=== PATIENT | female | born 1955 | race Two or more races ===

== ENCOUNTER 2019-09-08 23:13 | Emergency (ER) | payer MEDICAID ==
[~2019-09-08] VITALS: Ht 157.5 cm; Wt 59.0 kg
--- NOTE | 2019-09-08 23:37 | NUR ---
PT PRESENTED TO THE ER WITH A C/O SORE THROAT X 3 DAYS. PT STATED THAT SHE HAS BEEN TAKING TYLENOL 650 MG 3 TIMES A DAY WITH NO RELIEF. THE BACK OF THE PT'S MOUTH IS RED. TONSILS APPEAR INFLAMED AND RED, WHITE DOT NOTED ON RT. RAPID STREP SWAB DONE AND SENT TO LAB.
[2019-09-09] MEDS ORDERED: KETOROLAC TROMETHAMINE INJ 30 MG/ML VIAL ONE (00:11)
[2019-09-09] MEDS ORDERED: DEXAMETHASONE SOD PHOSPHATE 10 MG/ML VIAL ONE (00:11)
--- NOTE | 2019-09-09 00:17 | NUR ---
18G IV STARTED IN [facility]. BLOOD WAS DRAWN AND SENT TO THE LAB WITH SARAI SLUNK SKIN CURER.
--- NOTE | 2019-09-09 00:20 | NUR ---
PT REC'ING MEDICATION ORDERED.
[2019-09-09 00:22] LABS: BASOPHILS # (AUTO) 0.1 /CMM (0.0-0.2); BASOPHILS % (AUTO) 0.9 % (0.0-2.0); HEMATOCRIT 40 % (33-45); HEMOGLOBIN 13.1 g/dL (11.5-14.8); LYMPHOCYTES # (AUTO) 1.3 /CMM (0.8-4.8); LYMPHOCYTES % (AUTO) 10.6 % (20.0-44.0); MEAN CORPUSCULAR HGB CONC 33 g/dl (31.0-36.0); MEAN CORPUSCULAR VOLUME 85 fL (82-100); MONOCYTES # (AUTO) 0.9 /CMM (0.1-1.30); MONOCYTES % (AUTO) 7.8 % (2.0-12.0); NEUTROPHILS # (AUTO) 9.6 /CMM (1.8-8.9); NEUTROPHILS % (AUTO) 78.7 % (43.0-81.0); PLATELET COUNT (AUTO) 320 /CMM (150-450); RED BLOOD CELL COUNT(AUTO) 4.64 MIL/uL (4.0-5.2); WHITE BLOOD COUNT (AUTO) 12.2 K/uL (4.3-11.0)
[2019-09-09 00:29] LABS: CREATININE 0.8 mg/dL (0.6-1.3); POTASSIUM 3.9 mmol/L (3.5-5.1)
[2019-09-09] MEDS ORDERED: IV NS 0.9% 1,000 ML BAG IV ONE (00:30)
[2019-09-09] MEDS ORDERED: KETOROLAC TROMETHAMINE INJ 30 MG/ML VIAL IV ONE (00:30)
[2019-09-09] MEDS ORDERED: DEXAMETHASONE SOD PHOSPHATE 10 MG/ML VIAL IV ONE (00:30)
[2019-09-09] MEDS ORDERED: CLINDAMYCIN 900 MG/6 ML VIAL ONE (00:59)
[2019-09-09] MEDS ORDERED: CLINDAMYCIN 600 MG in IV D5W 100 ML IV ONE (01:00)
--- NOTE | 2019-09-09 01:40 | NUR ---
ANTIBIOTIC FINISHED. IV removed. Catheter intact and site benign. Pressure and 4x4 applied to site. No bleeding noted. PT AMBULATED TO THE BATHROOM WITH A STEADY GAIT. PT STATED THAT HER THROAT FELT BETTER, BUT WAS STILL SORE. PT STATED THAT SHE CAN SWALLOW NOW.
--- NOTE | 2019-09-09 01:47 | NUR ---
Patient discharged to home in stable condition. Written and verbal after care instructions given. Patient verbalizes understanding of instruction AND RX. PT REC'D A COPY OF THE LABS. VSS. PT AMBULATED OUT WITH A STEADY GAIT.
[2019-09-09 01:49] VITALS: BP 119/55
== END 2019-09-09 01:49 | disposition home or self-care (01) ==
LOC: ER 23:13
DX: J36 Peritonsillar abscess (principal)
CPT/HCPCS: 36415; 80048; 85025; 87880; 96365; 96375; 99284; J1100; J1885; J3490 ×2; J7030; J7060 ×2; 86403-TC

== ENCOUNTER 2020-10-03 19:56 | Emergency (ER) | payer OTHER, MEDICAID ==
[~2020-10-03] VITALS: Ht 157.5 cm; Wt 59.0 kg
[2020-10-03 20:24] VITALS: BP 125/79
[2020-10-03] MEDS ORDERED: DICL50TA7 PO (20:40)
[2020-10-03] MEDS ORDERED: HYDR-4275 PO ×2 (20:41→20:43)
== END 2020-10-03 20:57 | disposition home or self-care (01) ==
LOC: ER 19:59
DX: G89.29 Other chronic pain (principal); M54.5 Low back pain; J45.909 Unspecified asthma, uncomplicated; F17.200 Nicotine dependence, unspecified, uncomplicated; Z98.890 Other specified postprocedural states; Z88.0 Allergy status to penicillin; Z79.899 Other long term (current) drug therapy

== ENCOUNTER 2022-09-17 18:42 | Emergency (ER) | payer MEDICARE, OTHER ==
[~2022-09-17] VITALS: Ht 157.5 cm; Wt 59.0 kg
[~2022-09-17 18:42] MED LIST: DICL50TA7 PO; HYDR-4275 PO
[2022-09-17 20:05] VITALS: BP 131/67
[2022-09-17] MEDS ORDERED: TDAP [DIPH/PERTUSSIS/TET] 0.5 ML VIAL IM ONE ×2 (20:34→21:00)
[2022-09-17] MEDS ORDERED: DOXY-326 PO (20:37)
== END 2022-09-17 20:40 | disposition home or self-care (01) ==
LOC: ER 18:45
DX: S80.262A Insect bite (nonvenomous), left knee, initial encounter (principal); J44.9 Chronic obstructive pulmonary disease, unspecified; F17.200 Nicotine dependence, unspecified, uncomplicated; Z79.899 Other long term (current) drug therapy; Z88.0 Allergy status to penicillin; W57.XXXA Bitten or stung by nonvenomous insect and other nonvenomous arthropods, initial encounter; Y93.89 Activity, other specified; Y92.814 Boat as the place of occurrence of the external cause; Y99.8 Other external cause status
CPT/HCPCS: 90715